=== PATIENT | male | born 1980 | race African-American/Black ===

== ENCOUNTER → 2020-04-14 | Outpatient (CLI) | payer OTHER ==
--- NOTE | 2020-04-14 13:50 | Diagnostic Imaging Report ---
TECHNIQUE: Magnetic resonance imaging of the RIGHT ANKLE was performed WITHOUT injected contrast. COMPARISON: None available. HISTORY: Ankle pain FINDINGS: LIGAMENTS: Medial Complex: Deltoid intact. Lateral Complex: Subacute partial tearing of the anterior talofibular and calcaneofibular ligaments. TENDONS: Medial: Posterior tibial and flexor tendons intact. Lateral: Peroneal tendons intact. Superior retinaculum intact. Anterior: Anterior tibial and extensor tendons intact. Achilles: Mild insertional tendinopathy of the Achilles tendon with peritendinous edema. BONES: Small contusion in the plantar medial talar head. No acute fracture or osteonecrosis. JOINTS: Cartilage: Small osteochondral lesion in the medial talar dome measuring up to 7 mm. No unstable defect. Other: Fluid within the joints is within physiologic limits. SOFT TISSUES: Otherwise, unremarkable. IMPRESSION: Subacute ankle inversion injury with partial tearing and scarring of the lateral ankle ligaments and osteochondral lesion of the medial talar dome. No unstable fragment. Insertional Achilles tendinopathy with peritendinous edema. Signed by: Dr. Gómez Sy M.D. on 04/14/2020 1:46 PM
== END ==
LOC: MRI 12:01
PROVIDERS: ATTEND Family Medicine
DX: S93.411D Sprain of calcaneofibular ligament of right ankle, subsequent encounter (principal)

== ENCOUNTER → 2020-07-27 | Outpatient (RCR) | payer OTHER | LOC: PT 07-12 14:02 | PROVIDERS: ATTEND Specialist | DX: S93.401A Sprain of unspecified ligament of right ankle, initial encounter (principal) ==

== ENCOUNTER 2020-08-10 15:00 | Outpatient (RCR) | payer OTHER | END 2020-08-27 | LOC: PT 15:00 | PROVIDERS: ATTEND Specialist | DX: S93.401A Sprain of unspecified ligament of right ankle, initial encounter (principal); M25.571 Pain in right ankle and joints of right foot; M25.671 Stiffness of right ankle, not elsewhere classified; M62.81 Muscle weakness (generalized); R26.89 Other abnormalities of gait and mobility | CPT/HCPCS: 97139 ==